=== PATIENT | male | born 1995 | race Caucasian/White ===

== ENCOUNTER 2016-09-06 11:07 | Emergency (ER) | payer OTHER ==
[~2016-09-06] VITALS: Ht 185.4 cm; Wt 61.7 kg
[2016-09-06 11:10] VITALS: BP 129/28
== END 2016-09-06 11:53 | disposition home or self-care (01) ==
LOC: ER 11:08
DX: L23.7 Allergic contact dermatitis due to plants, except food (principal); F17.210 Nicotine dependence, cigarettes, uncomplicated
CPT/HCPCS: A4606; Z7610